=== PATIENT | female | born 1985 | race Two or more races ===

== ENCOUNTER 2025-03-23 00:08 | Emergency (ER) | payer MEDICAID, OTHER ==
[~2025-03-23] VITALS: Ht 157.5 cm; Wt 70.3 kg
[2025-03-23 01:37] LABS: CREATININE 0.6 mg/dL (0.6-1.3); PLATELET COUNT (AUTO) 322 K/uL (179-408); RED BLOOD CELL COUNT(AUTO) 4.52 MIL/uL (3.63-4.92); RED CELL DISTRIBUTION WIDTH 14.3 % (12.3-17.7); SODIUM SERUM 138.0 mmol/L (136-145); UREA NITROGEN, BLOOD 10.0 mg/dL (7-18); WHITE BLOOD COUNT (AUTO) 10.2 K/uL (3.8-11.8)
[2025-03-23 01:43] LABS: ASPARTATE AMINOTRANSFERASE 19.0 U/L (15-37); TOTAL PROTEIN, SERUM 8.5 g/dL (6.4-8.2)
[2025-03-23] MEDS ORDERED: HYDROCODONE/APAP 5-325MG TABLET ONE (01:47)
[2025-03-23] MEDS ORDERED: AMOXICILLIN-CLAVUL 875-125MG TABLET ONE (01:47)
[2025-03-23] MEDS: HYDROCODONE/APAP 5-325MG TABLET PO ONE (01:50)
[2025-03-23] MEDS: AMOXICILLIN-CLAVUL 875-125MG TABLET PO ONE (01:50)
[2025-03-23 02:00] VITALS: BP 104/69
[2025-03-23 02:03] LABS: *BILIRUBIN,URIN NEGATIVE (NEGATIVE); *CLARITY,URINE CLEAR (CLEAR); *COLOR,URINE YELLOW (YELLOW); *KETONES,URINE NEGATIVE (NEGATIVE); *PROTEIN,URINE NEGATIVE (NEGATIVE); *UROBILINOGEN,URINE 1.0 E.U./dl (NORMAL); LEUKOCYTE ESTERASE ,URINE NEGATIVE (NEGATIVE); NITRITE, URINE NEGATIVE (NEGATIVE); UGLUCOSE NEGATIVE (NEGATIVE)
[2025-03-23 02:05] LABS: *BLOOD, URINE TRACE (NEGATIVE)
[2025-03-23 02:10] LABS: *URINE HCG, QUAL POSITIVE (NEGATIVE)
[2025-03-23 02:20] LABS: SQUAMOUS EPITHELIAL CELL,UR MODERATE /HPF (NONE SEEN)
[2025-03-23] MEDS ORDERED: diphenhydrAMINE 50 MG/1 ML VIAL IV ONE (02:45)
[2025-03-23] MEDS ORDERED: AMOX-430 PO (03:19)
[2025-03-23] MEDS ORDERED: ACET-2605 PO (03:19)
[2025-03-23] MEDS ORDERED: PNV1TABL PO (03:19)
[2025-03-23 04:02] VITALS: BP 110/72; O2SAT 98
== END 2025-03-23 04:03 | disposition home or self-care (01) ==
LOC: ER 00:20
DX: O26.891 Other specified pregnancy related conditions, first trimester (principal); K08.89 Other specified disorders of teeth and supporting structures; G89.29 Other chronic pain; Z3A.00 Weeks of gestation of pregnancy not specified
CPT/HCPCS: 36415; 83690; 84703; 85025; A4606; A4663